=== PATIENT | female | born 1995 | race African-American/Black ===

== ENCOUNTER 2022-04-02 20:42 | Inpatient (IN) | payer MEDICAID, OTHER ==
[~2022-04-02] VITALS: Ht 172.7 cm; Wt 112.0 kg
[2022-04-02] MEDS ORDERED: LACTATED RINGER'S 1,000 ML IV ONE (22:30)
[2022-04-02] MEDS ORDERED: PENICILLIN G POT 5MIL/D5 50ML 50 ML IV ONE (23:45)
[2022-04-02] MEDS ORDERED: LIDOCAINE 2%HCL (LOCAL ANESTH.) INJ 10ml MDV IJ PRN (23:45)
[2022-04-02] MEDS ORDERED: BUTORPHANOL TARTRATE 2 MG/1 ML VIAL IV PRN ×2 (23:45)
[2022-04-02] MEDS ORDERED: WITCH HAZEL-GLYCERIN PAD TOP PRN (23:45)
[2022-04-02] MEDS ORDERED: PHISODERM TOP SOLN 240ML BTL TOP PRN (23:45)
[2022-04-02] MEDS ORDERED: miSOPROStol 50 MCG per PRE-CUT 1/2 TAB PO PRN (23:45)
[2022-04-02] MEDS ORDERED: PROMETHAZINE HCL 25 MG/ML 1ML IV PRN (23:45)
[2022-04-02] MEDS ORDERED: LACTATED RINGER'S 1,000 ML IV SCH (23:45)
[2022-04-02] MEDS ORDERED: DERMOPLAST 60ML BOTTLE TOP PRN (23:45)
[2022-04-03] MEDS ORDERED: ceFAZolin 1GM/50ML 50 ML IV ONE (00:15)
[2022-04-03] MEDS ORDERED: LACTATED RINGER'S 1,000 ML IV ONE (00:15)
[2022-04-03 00:27] LABS: Basophils # (auto) 0 10 ^3/uL (0-0.2); Basophils % (auto) 0.3 % (0.0-2.0); Eosinophils # (auto) 0.1 10 ^3/uL (0-0.8); Hematocrit 35.2 % (36.0-46.0); Hemoglobin 11.9 g/dL (12.2-16.2); Lymphocytes # (auto) 1.6 10 ^3/uL (0.4-5.4); Mean Corpuscular Hemoglobin 28.1 pg (28.0-32.0); Mean Corpuscular Hgb Conc. 33.9 g/dL (32.0-36.0); Monocytes # (auto) 0.4 10 ^3/uL (0-1.3); Monocytes % (auto) 6.6 % (0.0-12.0); Neutrophils # (auto) 4.4 10 ^3/uL (1.6-8.6); Neutrophils % (auto) 67.1 % (37.0-80.0); Nucleated Red Blood Cells % 0.1 %; Red Blood Cells 4.24 10^6/uL (4.0-5.20); Red Cell Distribution Width 14.1 % (11.8-14.3); White Blood Cell 6.6 10^3/uL (4.4-10.8)
[2022-04-03] MEDS ORDERED: MORPHINE SULF PF 5 MG/10 ML VIAL ONE (00:30)
[2022-04-03] MEDS ORDERED: fentaNYL CITRATE 100 MCG/2 ML VL ONE (00:31)
[2022-04-03] MEDS ORDERED: oxyTOCIN 10 UNIT/ML 10ML VIAL ONE (00:31)
[2022-04-03] MEDS ORDERED: GLYCOPYRROLATE 0.2 MG/ML 1ML VIAL ONE (00:31)
[2022-04-03] MEDS ORDERED: ONDANSETRON HCL 4 MG/2 ML VIAL ONE (00:31)
[2022-04-03] MEDS ORDERED: BUPIVACAINE/DEXTROSE MPF 0.75% 2 ML AMP IT ONE (00:31)
[2022-04-03 00:44] LABS: INR 0.9 (0.9-1.15); Partial Thromboplastin Time 28.6 sec (24.6-33.4)
[2022-04-03 00:52] LABS: BUN/Creatinine Ratio 12.3; Calcium 8.9 mg/dL (8.5-10.1); Potassium 3.5 mmol/L (3.5-5.1)
[2022-04-03 01:00] LABS: Bilirubin, Total 0.4 mg/dL (0.2-1.0); Total Protein 6.8 g/dL (6.4-8.2)
[2022-04-03 03:06] LABS: Urine Bacteria FEW /hpf (None Seen); Urine Blood Negative /uL (Negative); Urine Specific Gravity 1.014 (1.001-1.035); Urine WBC 1 /hpf (0 - 5)
[2022-04-03 03:22] LABS: Alcohol, Urine < 3.0 mg/dL (0-10); Amphetamine Screen, Urine NEGATIVE (NEGATIVE); Barbiturate Scree,Urine NEGATIVE (NEGATIVE); Benzodiazephine Screen, Urine NEGATIVE (NEGATIVE); Cannabinoid Screen, Urine NEGATIVE (NEGATIVE); Cocaine Screen, Urine NEGATIVE (NEGATIVE); Opiate Scree,Urine NEGATIVE (NEGATIVE); Phencyclidine Screen, Urine NEGATIVE (NEGATIVE)
[2022-04-03] MEDS ORDERED: PENICILLIN G POTASSIUM 2,500,000 UNITS in D5W 5% 50 ML IV SCH (03:45)
[2022-04-04 05:06] LABS: RPR Non Reactive (Non Reactive)
== END 2022-04-03 00:52 | disposition left against medical advice (07) | DRG 566 ==
LOC: LDRP 20:42 → OBSVTOIN 23:30
PROVIDERS: ADMIT Obstetrics & Gynecology; ATTEND Obstetrics & Gynecology
DX: O36.8330 Maternal care for abnormalities of the fetal heart rate or rhythm, third trimester, not applicable or unspecified (principal); O41.03X0 Oligohydramnios, third trimester, not applicable or unspecified; Z3A.39 39 weeks gestation of pregnancy; Z53.29 Procedure and treatment not carried out because of patient's decision for other reasons; Z20.822 Contact with and (suspected) exposure to COVID-19
CPT/HCPCS: 36415; 59025; 76818; 80053; 80307; 81001; 81002; 85025; 85610; 85730; 86592; 86850; 86900; 86901; 87426; 94760; 96360; 96361; G0378; J0690; J2405; J2590; J7060